=== PATIENT | female | born 1960 | race Caucasian/White ===

== ENCOUNTER 2017-11-20 04:08 | Emergency (ER) | payer OTHER ==
--- NOTE | 2017-11-20 04:13 | PDOC ---
History of Present Illness - General Stated Complaint: THROAT CLOSING Time Seen by Provider: 11/20/17 04:13 - History of Present Illness Initial Comments: 56 year old female without any PMH presenting with sensation of throat constriction for the past few hours. States that she had an episode of angioedema yesterday and was seen at an urgent care center where she was given an epinephrine injection, steroids, and Benadryl after which her lip swelling, neck rash, and general symptoms resolved. She is currently on a Medrol dose pack and 50 Benadryl 3x a day. She went to bed without much issue but woke up because she felt that the inside of her throat was closing further. States that there is a sensation of food and water remaining at the bottom of her throat when she eats. Marshall any history of allergies or any medications besides these recent ones. Her PCP is Dr. Khurram Granados. 11/20/17 04:24 Past History - Past Medical History Allergies/Adverse Reactions: Allergies Allergy/AdvReac Type Severity Reaction Status Date / Time No Known Allergies Allergy Verified 11/20/17 04:16 Home Medications: Ambulatory Orders Diphenhydramine [Benadryl -] 50 mg PO QID PRN 11/20/17 Omeprazole 20 mg PO DAILY #14 tablet. 11/20/17 Prednisone 0 mg PO ASDIR 11/20/17 Review of Systems - Review of Systems Constitutional: No: Chills, Diaphoresis, Fever, Loss of Appetite HEENTM: No: Blurred Vision, Tearing Respiratory: No: Cough, Orthopnea, Shortness of Breath, Stridor, Wheezing Cardiac (ROS): No: Chest Pain, Edema ABD/GI: Yes: Difficulty Swallowing. No: Diarrhea, Nausea, Vomiting : No: Dysuria, Discharge, Frequency Musculoskeletal: No: Muscle Pain, Muscle Weakness Integumentary: Yes: Lesions, Pruritus, Rash. No: Lumps, Pallor Neurological: No: Headache, Numbness, Paresthesia Endocrine: No: Increased Hunger, Increased Thirst Hematologic/Lymphatic: No: Anemia, Blood Clots, Easy Bleeding *Physical Exam - Physical Exam General Appearance: Yes: Nourished, Appropriately Dressed, Apparent Distress, Mild Distress HEENT: positive: EOMI, SYBIL, Normal ENT Inspection, Normal Voice, Pharynx Normal Neck: positive: Trachea midline, Normal Thyroid, Supple. negative: Tender, Rigid Respiratory/Chest: positive: Lungs Clear, Normal Breath Sounds. negative: Chest Tender, Respiratory Distress, Accessory Muscle Use, Labored Respiration, Rapid RR, Decreased Breath Sounds, Crackles, Rales, Rhonchi, Stridor, Wheezing Cardiovascular: positive: Regular Rhythm, Regular Rate Gastrointestinal/Abdominal: positive: Normal Bowel Sounds, Flat, Soft. negative : Tender Lymphatic: negative: Adenopathy, Tenderness Musculoskeletal: positive: Normal Inspection. negative: Decreased Range of Motion, Muscle Spasm Extremity: positive: Normal Capillary Refill, Normal Inspection, Normal Range of Motion. negative: Tender Integumentary: positive: Normal Color, Dry, Warm Neurologic: positive: Fully Oriented, Alert, Normal Mood/Affect, Normal Response , Motor Strength 10/28 ED Treatment Course - LABORATORY CBC & Chemistry Diagram: 11/20/17 04:58 11/20/17 04:58 Medical Decision Making - Medical Decision Making 56 year old with recent history of angioedema currently on Benadryl and medrol dose pack presenting with subjective throat closing and food/ fluid constriction. Will observe for a few hours and re-evaluate with possible sign out for ENT consult. 11/20/17 04:32 Patient was signed out to Dr. Chatman pending ENT consult and evaluation. However, she has been completely stable and objectively asymptomatic while in the ED although she does admit to this throat sensation lingering. 11/20/17 06:32 *DC/Admit/Observation/Transfer Diagnosis at time of Disposition: Angioedema - Discharge Dispostion Disposition: HOME Condition at time of disposition: Good - Prescriptions Prescriptions: Omeprazole 20 mg PO DAILY #14 tablet.dr - Referrals Referrals: Eduardo Granados MD [Primary Care Provider] - - Patient Instructions Printed Discharge Instructions: DI for General Allergic Reactions Additional Instructions: Please return if you have any new, worsening, or concerning symptoms. Please take omeprazole daily as instructed on the label, this medication is available over the counter. Please follow up with your primary care physician in the next week. Please follow up with the actuarial internship suggested by ENT. - Post Discharge Activity
[2017-11-20 04:21] VITALS: BMI 18.0
[2017-11-20] MEDS ORDERED: methylPREDNISolone NA SUCC 125 MG/2 ML VIAL IVPB ONE (04:36)
--- NOTE | 2017-11-20 04:43 | PDOC ---
Attending Attestation - Resident Resident Name: YossiDarrelmoichase - ED Attending Attestation I have performed the following: I have examined & evaluated the patient, The case was reviewed & discussed with the resident, I agree w/resident's findings & plan, Exceptions are as noted - HPI HPI: 11/20/17 04:36 56-year-old female patient with past medical history of angioedema presents with throat causing sensation. Patient visited an urgent care yesterday for angioedema of the lips and was given a prescription of Benadryl and prednisone. Which she was taking. She reported that the swelling of her lips have improved drastically and went to bed. This morning, patient noted throat closing sensation but denies difficulty breathing. The patient came to the ER for an evaluation. The patient does report that she had a similar incident 6 months ago that resolved on its own. The patient denies any new ALLERGIC reactions or other exposures. She states that she is unsure of what is causing this angioedema. - Physicial Exam PE: 11/20/17 04:46 GENERAL: Awake, alert, and fully oriented, in no acute distress. HEAD: No signs of trauma EYES: PERRLA, EOMI, sclera anicteric, conjunctiva clear ENT: Auricles normal inspection, hearing grossly normal, nares patent, oropharynx clear without exudates. NECK: Normal ROM, supple LUNGS: Breath sounds equal, clear to auscultation bilaterally. No wheezes, and no crackles HEART: Regular rate and rhythm, normal S1 and S2, no murmurs, rubs or gallops EXTREMITIES: Normal range of motion, no edema. No clubbing or cyanosis. No cords, erythema, or tenderness NEUROLOGICAL: Cranial nerves II through XII grossly intact. Normal speech, normal gait SKIN: Warm, Dry, normal turgor, no rashes or lesions noted. - Medical Decision Making 11/20/17 04:46 Vital Signs Temp Pulse Resp BP Pulse Ox 98.2 F 80 18 124/99 100 11/20/17 04:18 11/20/17 04:18 11/20/17 04:18 11/20/17 04:18 11/20/17 04:18 56-year-old female with history of angioedema resents with subjective sensation of throat closing. Patient will be given steroids and Benadryl. We'll observe the patient for several hours. Oropharynx appears unremarkable at this time. Patient speaking in full sentences without stridor or wheezing. There is no drooling or change in voice. If the patient continued persistence of symptoms, we'll consult ENT for nasopharyngeal scoping.
[2017-11-20] MEDS ORDERED: FAMOTIDINE 20 MG/50 ML IVPB 20 MG/50 ML MG IVPB ONE ×2 (04:46→05:15)
[2017-11-20] MEDS ORDERED: methylPREDNISolone NA SUCC 125 MG/2 ML VIAL ONE (04:46)
[2017-11-20] MEDS ORDERED: SODIUM CHLORIDE 0.9% 500 ML INFUS.BAG IV ONE (04:55)
[2017-11-20 05:13] LABS: BASO % 0.2 % (0-2.0); HEMATOCRIT 39.7 % (32.4-45.2); HEMOGLOBIN 13.2 GM/dL (10.7-15.3); LYMPH % 14.2 % (8-40); MCH 31.9 pg (25.7-33.7); MCHC 33.3 g/dl (32.0-36.0); MEAN CELL VOLUME 95.6 fl (80-96); MEAN PLT VOLUME 9.7 fl (7.5-11.1); MONO % 5.2 % (3.8-10.2); NEUT % 80.4 % (42.8-82.8); PLATELET COUNT 249 K/MM3 (134-434); RBC 4.15 M/mm3 (3.60-5.2); RDW 13.8 % (11.6-15.6); WHITE BLOOD COUNT 8.2 K/mm3 (4.0-10.0)
[2017-11-20 05:42] LABS: ALBUMIN 3.9 g/dl (3.4-5.0); ALK PHOS 50 U/L (45-117); ANION GAP 7 (8-16); BILIRUBIN,TOTAL 0.3 mg/dL (0.2-1.0); BLOOD UREA NITROGEN 18 mg/dL (7-18); CALCIUM 9.1 mg/dL (8.5-10.1); CHLORIDE 103 mmol/L (98-107); CO2 28 mmol/L (21-32); CREATININE 0.7 mg/dL (0.55-1.02); GLUCOSE,RANDOM 123 mg/dL (74-106); POTASSIUM 4.2 mmol/L (3.5-5.1); SGOT/AST 14 U/L (15-37); SGPT/ALT 21 U/L (12-78); SODIUM 138 mmol/L (136-145); TOT PROT 7.5 g/dl (6.4-8.2)
[2017-11-20] MEDS ORDERED: LORazepam 0.5 MG TABLET PO ONE (06:03)
[2017-11-20] MEDS ORDERED: LORazepam 0.5 MG TABLET ONE (06:05)
--- NOTE | 2017-11-20 07:34 | PDOC ---
*Physical Exam - Vital Signs Last Vital Signs Temp Pulse Resp BP Pulse Ox 98.1 F 75 18 147/70 100 11/20/17 07:10 11/20/17 07:10 11/20/17 07:10 11/20/17 07:10 11/20/17 07:10 - Physical Exam Comments: 11/20/17 07:33 GENERAL: Awake, alert, and fully oriented, in no acute distress ENT: Auricles normal inspection, hearing grossly normal, nares patent, oropharynx clear without exudates. Moist mucosa NECK: Normal ROM, supple, no lymphadenopathy, JVD, or masses. No stridor LUNGS: No distress, speaks full sentences, clear to auscultation bilaterally EXTREMITIES: Normal inspection, Normal range of motion, no edema. No clubbing or cyanosis. NEUROLOGICAL: Cranial nerves II through XII grossly intact. Normal speech, no focal sensorimotor deficits SKIN: Warm, Dry, normal turgor, no rashes or lesions noted. ED Treatment Course - LABORATORY CBC & Chemistry Diagram: 11/20/17 04:58 11/20/17 04:58 - ADDITIONAL ORDERS Additional order review: Laboratory Results 11/20/17 04:58 Sodium 138 Potassium 4.2 Chloride 103 Carbon Dioxide 28 Anion Gap 7 L BUN 18 Creatinine 0.7 Creat Clearance w eGFR > 60 Random Glucose 123 H Calcium 9.1 Total Bilirubin 0.3 AST 14 L ALT 21 Alkaline Phosphatase 50 Total Protein 7.5 Albumin 3.9 11/20/17 04:58 RBC 4.15 MCV 95.6 MCHC 33.3 RDW 13.8 MPV 9.7 Neutrophils % 80.4 Lymphocytes % 14.2 Monocytes % 5.2 Eosinophils % 0.0 Basophils % 0.2 - Medications Given in the ED: ED Medications Discontinued Medications Generic Name Dose Route Start Last Admin Trade Name Freq PRN Reason Stop Dose Admin Diphenhydramine HCl 25 mg 11/20/17 04:36 11/20/17 05:04 Benadryl Injection - IVPUSH 11/20/17 04:37 25 mg ONCE ONE Administration Famotidine/Sodium Chloride 20 mg in 50 mls @ 100 mls/hr 11/20/17 05:15 05:11 Pepcid 20 Mg Premixed Ivpb - IVPB 11/20/17 05:44 100 mls/hr ONCE ONE Administration Lorazepam 0.5 mg 05/28/18 06:01 11/20/17 07:32 Ativan Injection - IVPUSH 11/20/17 06:02 Not Given ONCE ONE Lorazepam 0.5 mg 11/20/17 06:03 11/20/17 07:07 Ativan - PO 11/20/17 06:04 0.5 mg ONCE ONE Administration Methylprednisolone Sodium Succinate 125 mg 11/20/17 04:36 11/20/17 05:04 Solu-Medrol - IVPB 11/20/17 04:37 125 mg ONCE ONE Administration Sodium Chloride 1,000 ml 11/20/17 04:55 11/20/17 05:05 Normal Saline - IV 11/20/17 04:56 1,000 ml ONCE ONE Administration Medical Decision Making - Medical Decision Making 11/20/17 07:[address] Sy. Patient is 56F who presented with difficultly breathing after having an episode of angioedema yesterday. No known causes of angioedema, patient is not on any drugs. PE shows no evidence of angioedema at this time, but patient states that she still has a sensation of her throat being swollen. ENT called. Patient is stable. 11/20/17 10:[address] Govea evaluted patient. Scope shows no edema in airway. Suggests giving omeprazole, stopping steroids and log sorter follow up. Patient states that she feels better on re-evaluation. Breathing easy. Appears well. Will discharge with prescription for omeprazole, return precautions and instructions to follow up. *DC/Admit/Observation/Transfer Diagnosis at time of Disposition: Angioedema - Discharge Dispostion Disposition: HOME Condition at time of disposition: Good Decision to Admit order: No - Referrals Referrals: Eduardo Granados MD [Primary Care Provider] - - Patient Instructions Printed Discharge Instructions: DI for General Allergic Reactions Additional Instructions: Please return if you have any new, worsening, or concerning symptoms. Please take omeprazole daily as instructed on the label, this medication is available over the counter. Please follow up with your primary care physician in the next week. Please follow up with the log sorter suggested by ENT. - Post Discharge Activity
--- NOTE | 2017-11-20 08:34 | EKG ---
Test Reason : Blood Pressure : / mmHG Vent. Rate : 066 BPM Atrial Rate : 066 BPM P-R Int : 120 ms QRS Dur : 074 ms QT Int : 380 ms P-R-T Axes : 103 076 072 degrees QTc Int : 398 ms NORMAL SINUS RHYTHM NORMAL ECG NO PREVIOUS ECGS AVAILABLE BASELINE ARTIFACT Confirmed by CORNELIO SAWANT, MAGALYS ([id number]) on 11/20/2017 8:34:38 AM Referred By: Confirmed By:MAGALYS GRIMES MD
[2017-11-20] MEDS ORDERED: FAMOTIDINE IV 20 MG/12 ML VIAL IVPUSH SCH (10:00)
[2017-11-20 10:40] VITALS: BP 134/70; PULSE 77; TEMP 98
--- NOTE | 2017-11-20 11:29 | CONSULT ---
Consult - text type - Consultation Consultation Note: ENT CONSULT NOTE Full note dictated. 56 YOF came in 6 hrs ago with sensation of throat swelling. She developed lip swelling upper and lower 3 days ago, went to , given prednisone and this has gradually but fully resolved, the throat still bothers her. No dysphagia or hoarseness or SOB. No hx of reflux. Pt otherwise is healthy on no regular meds and does not note any significant changes in her lifestyle or personal care products. Similar problem one mth ago while taking zyrtec, this was associated with a rash on the anterior neck, saw dermatology and took prednisone and all resolved fully. Has not taken zyrtec since then. No current meds. PE: Afeb, normal VS Ears wnl. Nose wnl, Lips and OC wnl, no edema, lesions. OP wnk, no swelling. Neck without masses or tenderness or rash. Fiberoptic exam: Right nose to UTILITY PORTER, OP wnl; HP: no angioedema seen, esophageal inlet with sx of moderate acid reflux. larynx and upper trachea wnl. Airway is normal. Voice is strong and clear and unchanged according to family. IMP: Idiopathic angioneurotic edema, no sx of swelling in the airway at present. Would be unusal to have esophageal swelling and pt able to drink fine. ? contribution from reflux giving throat discomfort. REC: Ok for d/c home. Can stop the prednisone and just use prn. Would have her take omeprazole 40mg QAM and f/u with Dr David Campos, chief concierge at [facility] in [place] to do a full w/u. Info given to pt.
== END 2017-11-20 10:50 | disposition home or self-care (01) ==
LOC: JER 04:08 → SUPCPDRO 04:08 → JER 10:50
PROC: 0CJS8ZZ Inspection of Larynx, Via Natural or Artificial Opening Endoscopic (ICD-10-PCS; principal; 2017-11-20)
DX: T78.3XXA Angioneurotic edema, initial encounter (principal)
CPT/HCPCS: 31575; 36415; 80053; 85025; 93005; 93010; 99284-25

== ENCOUNTER 2018-04-04 06:09 | Inpatient (IN) | payer OTHER ==
[2018-04-02 14:40] VITALS: BMI 19.7
[2018-04-04] MEDS ORDERED: ROPIVACAINE HCL 0.5% 30ML VIAL ONE (07:18)
[2018-04-04] MEDS ORDERED: MIDAZOLAM HCL 2 MG/2 ML SINGLE DOSE VIAL ONE ×2 (07:20)
[2018-04-04] MEDS ORDERED: CEFAZOLIN 1 GM in DEXTROSE 5%-WATER - 50 ML IVPB ONE (08:09)
--- NOTE | 2018-04-04 08:09 | HP ---
History & Physical Update - Physical Physical: No Change - Assessment Assessment: No Change - Plan Plan: No Change
[2018-04-04] MEDS ORDERED: ROCURONIUM BROMIDE 50 MG/5 ML VIAL ONE (08:15)
[2018-04-04] MEDS ORDERED: LIDOCAINE HCL/PF 2% SDV 5ML VIAL ONE (08:15)
[2018-04-04] MEDS ORDERED: PROPOFOL 20 ML ONE (08:15)
[2018-04-04] MEDS ORDERED: ceFAZolin SODIUM 1 GM VIAL ONE ×2 (08:19→16:33)
[2018-04-04] MEDS ORDERED: ceFAZolin SODIUM 1 GM VIAL IVPB ONE (08:25)
[2018-04-04] MEDS ORDERED: DEXAMETHASONE SOD PHOSPHATE 4 MG/1 ML VIAL ONE (08:40)
[2018-04-04] MEDS ORDERED: NEOSTIGMINE METHYLSULFATE 0.5 MG/ML - 10 ML MDV ONE (09:02)
[2018-04-04] MEDS ORDERED: GLYCOPYRROLATE 0.2 MG/1 ML VIAL ONE (09:02)
[2018-04-04] MEDS ORDERED: KETOROLAC TROMETHAMINE 30 MG/1 ML VIAL ONE (09:11)
[2018-04-04] MEDS ORDERED: oxyCODONE HCL 5 MG TABLET PO PRN (09:44)
[2018-04-04] MEDS ORDERED: ONDANSETRON 4 MG/2 ML VIAL IVPUSH PRN ×2 (09:44→09:45)
[2018-04-04] MEDS ORDERED: ELECTROLYTE-148 SOLN 1,000 ML IV SCH (09:45)
[2018-04-04] MEDS ORDERED: LACTATED RINGERS SOLUTION 1,000 ML IV SCH (09:45)
--- NOTE | 2018-04-04 09:55 | OP ---
Operative Note - Note: Operative Date: 04/04/18 Pre-Operative Diagnosis: pelvic pain, fibroid uterus Operation: supracervical abdominal hysterectomy, BSO Findings: large multiple myomatous uterus with adenomyosis Surgeon: Poncho Martinez Tomato Grader: Silva Jensen Anesthesiologist/MARINE PIPEFITTER HELPER: Chrissy Ba Anesthesia: General Specimens Removed: uterus, both tubes and ovaries Estimated Blood Loss (mls): 50 Drains & Tubes with Location: none Drains, Volume Out (mls): 100 Blood Volume Replaced (mls): 800 Operative Report Dictated: Yes
[2018-04-04] MEDS ORDERED: ACETAMINOPHEN INJECTION 100 ML IVPB ONE (10:01)
[2018-04-04] MEDS: ACETAMINOPHEN 1000 MG/100 ML VIAL (NON FORMULARY) IVPB PRN ×2 (10:10→23:22)
[2018-04-04] MEDS ORDERED: LORazepam 2 MG/ML SDV VIAL ONE (10:43)
[2018-04-04] MEDS ORDERED: LORazepam 2 MG/ML SDV VIAL IVPUSH ONE (12:00)
--- NOTE | 2018-04-04 12:35 | OP ---
DATE OF OPERATION: 04/04/2018 PREOPERATIVE DIAGNOSIS: Pelvic pain, fibroid uterus. POSTOPERATIVE DIAGNOSIS: Pelvic pain, fibroid uterus, adenomyosis. SURGEON: Poncho Martinez MD DATA QUALITY CONSULTANT: Silva Jensen MD ESTIMATED BLOOD LOSS: 50 mL. ANESTHESIA: General. ANESTHESIOLOGIST: Chrissy Ba MD COMPLICATIONS: None. OPERATION: The patient was taken to the operating room under adequate general anesthesia, and in dorsal supine position, abdomen and perineum were prepped and draped. A Pfannenstiel abdominal skin incision was made. Abdominal wall was cut layer by layer until the peritoneum was exposed and incised. Upon entering the abdominal cavity, lower uterine segment was identified, and uterovesical fold of peritoneum was established, bladder was pushed down. Then, both round ligaments were identified, grasped with bipolar cautery, cauterized and cut. Then, a hole was made in the broad ligament. Bilateral tubes and ovaries were grasped with a Paguate clamp, and infundibulopelvic area was cauterized with bipolar cautery and cut, and adnexa was severed from the infundibulopelvic ligament. At this time, bladder was further pushed down. Uterine artery was identified bilaterally, clamped with Chad clamp, cut, and the clamp replaced with 0 Vicryl suture bilaterally. Paracervical area was clamped with Chad clamp, cut, and the clamp replaced with 0 Vicryl suture bilaterally. Then, the specimen was removed above the cervix. Cervix was sutured with interrupted suture of 0 Vicryl. Hemostasis was established. Pelvic cavity was several times irrigated. No active bleeding was seen. All the lap pad, sponge, and instrument counts were correct. Then, peritoneum was closed with 0 Vicryl continuous suture, muscles brought together with interrupted suture of 0 Vicryl, fascia was closed with 0 Vicryl continuous suture, subcutaneous fat with interrupted suture of 0 Vicryl, and the skin was closed with 4-0 Biosyn subcuticular continuous suture. Patient tolerated the procedure well, left the OR in good condition. Mona [id number]
[2018-04-04] MEDS: CEFAZOLIN 1 GM in DEXTROSE 5%-WATER - 50 ML IVPB SCH ×2 (13:06→17:27)
[2018-04-04] MEDS: IBUPROFEN 800 MG/8 ML IJ IVPB PRN ×2 (13:15→19:26)
[2018-04-04] MEDS ORDERED: DEXTROSE 5%-WATER - 50 ML IVPB ONE (16:33)
[2018-04-04] MEDS: ACETAMINOPHEN 325 MG TABLET (FP) PO PRN (16:39)
[2018-04-04] MEDS ORDERED: BENZOCAINE/MENTH/CETYLPYRD CL 1 EACH LOZENGE MM PRN (20:04)
[2018-04-04] MEDS: oxyCODONE HCL 5 MG TABLET PO PRN (20:55)
[2018-04-05] MEDS: SIMETHICONE 80 MG TAB.CHEW (FP) PO PRN ×4 (01:49→18:13)
[2018-04-05] MEDS ORDERED: ceFAZolin SODIUM 1 GM VIAL ONE (01:55)
[2018-04-05] MEDS ORDERED: DEXTROSE 5%-WATER - 50 ML IVPB ONE (01:55)
[2018-04-05] MEDS: CEFAZOLIN 1 GM in DEXTROSE 5%-WATER - 50 ML IVPB SCH (02:02)
[2018-04-05] MEDS: IBUPROFEN 800 MG/8 ML IJ IVPB PRN (02:31)
[2018-04-05] MEDS: oxyCODONE HCL 5 MG TABLET PO PRN ×3 (06:10→13:57)
[2018-04-05] MEDS: ACETAMINOPHEN 325 MG TABLET (FP) PO PRN ×4 (06:10→22:06)
[2018-04-05 08:37] LABS: HEMATOCRIT 33.3 % (32.4-45.2); HEMOGLOBIN 11.2 GM/dL (10.7-15.3); MCH 31.2 pg (25.7-33.7); MCHC 33.8 g/dl (32.0-36.0); MEAN CELL VOLUME 92.3 fl (80-96); MEAN PLT VOLUME 9.3 fl (7.5-11.1); PLATELET COUNT 216 K/MM3 (134-434); RDW 13.6 % (11.6-15.6)
[2018-04-05 08:42] LABS: ANION GAP 6 MMOL/L (8-16); BLOOD UREA NITROGEN 7 mg/dL (7-18); CALCIUM 8.4 mg/dL (8.5-10.1); CHLORIDE 107 mmol/L (98-107); CO2 27 mmol/L (21-32); CREATININE 0.5 mg/dL (0.55-1.3); GLUCOSE,RANDOM 89 mg/dL (74-106); POTASSIUM 4.3 mmol/L (3.5-5.1); SODIUM 140 mmol/L (136-145)
[2018-04-05] MEDS: ENOXAPARIN NA (PORCINE) 40 MG/0.4 ML DISP.SYRIN SQ SCH (10:43)
[2018-04-05] MEDS: DOCUSATE SODIUM 100 MG CAPSULE (FP) PO PRN ×2 (10:43→21:21)
--- NOTE | 2018-04-05 12:57 | PN ---
Progress Note (short form) - Note Progress Note: Anesthesia POD#1 S/P Abdominal Hysterectomy with BSO under GA,TAP Block VSS,no N/V,legs are strong,no pain. Chrissy Ba MD.
[2018-04-05] MEDS ORDERED: PANTOPRAZOLE 40 MG TABLET (FP) PO PRN (16:00)
--- NOTE | 2018-04-05 16:04 | PN ---
Progress Note (short form) - Note Progress Note: pod 1 ,c/o nausea , has indigestion, CBC, BMP 04/05/18 07:12 04/05/18 07:12 Last Vital Signs Temp Pulse Resp BP Pulse Ox 98.7 F 72 18 116/70 100 04/05/18 09:40 04/05/18 09:40 04/05/18 09:40 04/05/18 09:40 04/04/18 12:00 abdomen soft, no distension, no cva incision dry, clean no calf tenderness plan ambulate, protonix. pain management
[2018-04-05] MEDS ORDERED: METOCLOPRAMIDE HCL INJECTION 10 MG/2 ML VIAL IVPB PRN (17:52)
[2018-04-05] MEDS: IBUPROFEN 600 MG TABLET (FP) PO PRN (18:13)
[2018-04-05] MEDS ORDERED: ACETAMINOPHEN 325 MG TABLET (FP) PO PRN (21:52)
[2018-04-05] MEDS ORDERED: ZOLPIDEM TARTRATE 5 MG TABLET PO ONE (22:00)
[2018-04-06] MEDS: ACETAMINOPHEN 325 MG TABLET (FP) PO PRN ×2 (04:07→11:22)
--- NOTE | 2018-04-06 07:00 | PN ---
Progress Note (short form) - Note Progress Note: pod 2 doing well, passing gas CBC, BMP 04/05/18 07:12 04/05/18 07:12 Last Vital Signs Temp Pulse Resp BP Pulse Ox 98.5 F 65 18 132/73 100 04/05/18 22:00 04/05/18 22:00 04/05/18 22:00 04/05/18 22:00 04/04/18 12:00 abdomen soft, no distension, no cva incision dry, clean no calf tenderness plan d/c home , folow up office 2 weeks
[2018-04-06] MEDS: ENOXAPARIN NA (PORCINE) 40 MG/0.4 ML DISP.SYRIN SQ SCH (09:13)
[2018-04-06] MEDS: IBUPROFEN 600 MG TABLET (FP) PO PRN (09:13)
[2018-04-06 10:06] VITALS: BP 119/80; PULSE 85; TEMP 98
--- NOTE | 2018-04-09 16:33 | DS ---
Physical Exam-INSTRUCTIONAL DESIGN SPECIALIST Vital Signs: Vital Signs Temperature 98.0 F 04/06/18 09:37 Pulse Rate 85 04/06/18 09:37 Respiratory Rate 18 04/06/18 09:37 Blood Pressure 119/80 04/06/18 09:37 O2 Sat by Pulse Oximetry (%) 100 04/04/18 12:00 Constitutional: Yes: Well Nourished, No Distress, Calm Eyes: Yes: WNL, Conjunctiva Clear, EOM Intact HENT: Yes: WNL, Atraumatic, Normocephalic Neck: Yes: WNL, Supple, Trachea Midline Cardiovascular: Yes: WNL, Regular Rate and Rhythm Respiratory: Yes: WNL, Regular, CTA Bilaterally Gastrointestinal: Yes: WNL ...Rectal Exam: Yes: WNL Renal/: Yes: WNL Breast(s): Yes: WNL Musculoskeletal: Yes: WNL Extremities: Yes: WNL Edema: No Integumentary: Yes: WNL Wound/Incision: Yes: Clean/Dry, Well Approximated, Sutures Intact Neurological: Yes: WNL, Alert, Oriented ...Motor Strength: WNL Psychiatric: Yes: WNL, Alert, Oriented Labs: CBC, BMP 04/05/18 07:12 04/05/18 07:12 Discharge Summary Reason For Visit: FIBROIDS UTERUS/PELVIC PAIN Procedures: Principal: supracervical abdominal hysterectomy ,bilateral salpingectomy Hospital Course: no complication Condition: Good - Instructions Diet, Activity, Other Instructions: regular diet, if fever, pain, heavy vaginal bleeding call , follow up office 2 weeks Referrals: Poncho Martinez MD [Staff Physician] - Disposition: HOME - Home Medications Comprehensive Discharge Medication List: Ambulatory Orders Cetirizine HCl [Zyrtec -] 10 mg PO DAILY 04/02/18 Ibuprofen [Motrin -] 600 mg PO QID #28 tablet 04/04/18
--- NOTE | 2018-04-10 13:37 | PATH ---
Surgical Pathology Report Patient Name: PRANAV CH [facility]. Rec. #: [id number] /Age/Gender: 1960 (Age: 57) / F Account: [id number] Location: [facility] OBS/SENIOR CLINICAL CONSULTANT Taken: 04/04/2018 Received: 04/04/2018 Reported: 04/10/2018 Physicians: Poncho Martinez M.D. Specimen(s) Received UTERUS WITH B/L TUBES AND OVARIES Clinical History Fibroid uterus, pelvic pain Final Diagnosis UTERUS, BILATERAL FALLOPIAN TUBES AND OVARIES, SUPRACERVICAL HYSTERECTOMY AND SALPINGO-OOPHORECTOMY: LEIOMYOMATA. ATROPHIC ENDOMETRIUM. BILATERAL FALLOPIAN TUBES WITH ENDOSALPINGIOSIS. BILATERAL OVARIES WITH ENDOSALPINGOSIS AND ENDOMETRIOSIS. Comment: Immunohistochemical CD10 stained slide on "block 15" highlights the endometrial stroma of endometriosis. Immunohistochemistry stain CD10 performed at [place], [place] ([id number]) interpreted at [facility]. Electronically Signed Pacheco Dougherty M.D. Gross Description Received in formalin labeled "uterus, bilateral fallopian tubes ovaries," is a 752 g supracervically amputated uterus with bilateral attached adnexa. The specimen measures 12 cm from superior to inferior, 9.5 cm from anterior to posterior and 9.5 cm from left to right. The serosa is welsh-malcolm and smooth. The endometrial cavity measures 9 cm in length and 3.5 cm from cornu to cornu. The endometrium is welsh and averages 0.1 cm in thickness. The myometrium displays abundant intramural nodules, the largest of which measures 11 cm in greatest dimension. The largest intramural nodule displays foci of degeneration and necrosis. The remaining intramural nodules are welsh and rubbery with whorled architecture. The remaining myometrium is welsh-pink and measures up to 8 cm in thickness. The left fimbriated fallopian tube measures 3.5 cm in length. The outer surface is welsh slaughter and smooth. Sectioning reveals an unremarkable lumen. The left ovary measures 2.5 x 1.5 x 0.7 cm. The outer surface is welsh and smooth. Sectioning reveals unremarkable ovarian parenchyma. The right fimbriated fallopian tube measures 5.5 cm in length. The outer surface is welsh-malcolm and smooth. Sectioning reveals an unremarkable lumen. The right ovary measures 2.3 x 1.3 x 1.0 cm. The outer surface is welsh-yellow and smooth. Sectioning reveals unremarkable ovarian parenchyma. Debrander sections are submitted in 15 cassettes as follows: 1-cervical stump margin of resection; 8-9-rplztlus endomyometrium; 6-8-ztneqovfo endomyometrium; 6-intramural nodules; 7-9-largest intramural nodule; 10-left fallopian tube fimbria; 11-cross sections of left fallopian tube; 12-left ovary; 13-right fallopian tube fimbria; 14-cross sections of right fallopian tube; 15-right ovary. 04/05/2018 saudi04/05/2018
== END 2018-04-06 11:30 | disposition home or self-care (01) | DRG 519 ==
LOC: JSAMEDAYSX 06:09 → J3W 12:10
PROVIDERS: ADMIT Obstetrics & Gynecology; ATTEND Obstetrics & Gynecology
PROC: 0UT70ZZ Resection of Bilateral Fallopian Tubes, Open Approach (ICD-10-PCS; 2018-04-04)
PROC: 0UT20ZZ Resection of Bilateral Ovaries, Open Approach (ICD-10-PCS; 2018-04-04)
PROC: 0UT90ZL Resection of Uterus, Supracervical, Open Approach (ICD-10-PCS; principal; 2018-04-04 08:00)
DX: D25.9 Leiomyoma of uterus, unspecified (principal); N80.0 Endometriosis of uterus; R11.0 Nausea
CPT/HCPCS: 36415; 80048; 85027; 86850; 86900; 86901; 88307-TC; 88341-TC; 94010; 94760; J0131

== ENCOUNTER → 2019-01-03 | Day surgery (SDC) | payer OTHER ==
--- NOTE | 2019-01-04 14:59 | PATH ---
Surgical Pathology Report Patient Name: PRANAV CH [facility]. Rec. #: [id number] /Age/Gender: 1960 (Age: 58) / F Account: [id number] Location: [facility] Taken: 01/03/2019 Received: 01/03/2019 Reported: 01/04/2019 Physicians: Timoteo Garcia M.D. Specimen(s) Received A: LEFT BREAST WITH CALCIFICATIONS STEREOTACTIC BX B: LEFT BREAST WITHOUT CALCIFICATIONS STEREOTACTIC BX Clinical History Nonpalpable lesion Mammographic findings: Microcalcification, suspicious Final Diagnosis A. 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 B. BREAST, LEFT, WITHOUT CALCIFICATIONS, STEREOTACTIC BIOPSY: FOCAL ATYPICAL DUCTAL HYPERPLASIA (ADH). Electronically Signed Alaina Edmonds M.D. Gross Description A. Received in formalin labeled "left breast with calcifications," are 4 welsh-yellow, cylindrical portions of fibroadipose tissue ranging from 0.5-1.6 cm in length and averaging 0.3 cm in diameter. The specimens are submitted in toto in one cassette. B. Received in formalin labeled "left breast without calcifications," is a 2.4 x 1.9 x 0.3 cm aggregate of multiple welsh-yellow, irregular to cylindrical portions of fibroadipose tissue. The formalin is filtered and the specimen is entirely submitted in one cassette. Time to formalin fixation: 5 minutes Total formalin fixation time: Approximately 8 hours. /01/03/2019 saudi01/03/2019
== END | disposition home or self-care (01) ==
LOC: FMAMMOTONE 08:25
PROVIDERS: ATTEND Specialist
PROC: 0HBU3ZX Excision of Left Breast, Percutaneous Approach, Diagnostic (ICD-10-PCS; principal; 2019-01-03)
DX: N60.92 Unspecified benign mammary dysplasia of left breast (principal)
CPT/HCPCS: 19081; 88305-TC

== ENCOUNTER 2019-02-13 10:02 | Day surgery (SDC) | payer OTHER ==
[2019-02-08 10:04] VITALS: BMI 20.9
[2019-02-13] MEDS ORDERED: oxyCODONE HCL 5 MG TABLET PO PRN (12:17)
[2019-02-13] MEDS ORDERED: ONDANSETRON 4 MG/2 ML VIAL IVPUSH PRN (12:17)
[2019-02-13] MEDS ORDERED: LACTATED RINGERS SOLUTION 1,000 ML IV SCH (12:30)
[2019-02-13] MEDS ORDERED: LIDOCAINE HCL 1%, 10 MG/ML (20ML VIAL) ONE (13:32)
[2019-02-13] MEDS ORDERED: PROPOFOL 20 ML ONE (13:49)
[2019-02-13] MEDS ORDERED: MIDAZOLAM HCL 2 MG/2 ML SINGLE DOSE VIAL ONE (13:49)
[2019-02-13] MEDS ORDERED: KETOROLAC TROMETHAMINE 30 MG/1 ML VIAL ONE (14:03)
[2019-02-13] MEDS ORDERED: ceFAZolin SODIUM 1 GM VIAL ONE (14:03)
[2019-02-13] MEDS ORDERED: DEXAMETHASONE SOD PHOSPHATE 4 MG/1 ML VIAL ONE (14:03)
[2019-02-13] MEDS ORDERED: ceFAZolin SODIUM 1 GM VIAL IVPB ONE (14:05)
[2019-02-13] MEDS ORDERED: LIDOCAINE HCL 1%, 10 MG/ML (20ML VIAL) NR ONE ×2 (14:10)
[2019-02-13] MEDS ORDERED: ePHEDrine SULFATE 50 MG/1 ML AMPULE ONE (14:27)
--- NOTE | 2019-02-13 14:45 | HP ---
History & Physical Update - History History: No Change - Physical Physical: No Change - Assessment Assessment: No Change - Plan Plan: No Change
[2019-02-13 15:09] VITALS: PULSE 64
[2019-02-13 17:24] VITALS: BP 137/76; TEMP 97.7
--- NOTE | 2019-02-14 12:52 | OP ---
DATE OF OPERATION: 02/13/2019 PREOPERATIVE DIAGNOSIS: Left breast atypia. POSTOPERATIVE DIAGNOSIS: Left breast atypia. PROCEDURE: Left breast wide localized lumpectomy. SURGEON: Janay Bass MD ANESTHESIA: General. ESTIMATED BLOOD LOSS: Minimal. COMPLICATIONS: None. DISPOSITION: Stable at the end of procedure. INDICATIONS: Patient underwent routine screening mammography that noted calcifications in the upper inner left breast. She underwent a stereotactic needle biopsy that showed atypical ductal hyperplasia. My recommendation was excision of the area to make sure there was no further upgrade in the lesion. The procedure was discussed with her, and she understood. PROCEDURE IN DETAIL: Patient was brought to [facility] in [place], taken to breast imaging where a wire was used to localize the clip in the upper inner left breast. She was then brought to the operating room, and after induction of general anesthesia and IV antibiotics, the left breast was prepped and draped in the usual sterile fashion. An incision was made in the upper inner left breast to include the prior incision from the stereotactic biopsy. The wire was used as a guide to get down to the area of interest. This was excised en bloc and tied with a long stitch lateral, short stitch superior, sent for a specimen radiograph. Hemostasis was assured with electrocautery. The parenchyma approximated with interrupted 2-0 Vicryl, skin approximated with interrupted 2-0 Vicryl, running 4-0 Prolene. A sterile dressing with Steri-Strips and Tegaderm was applied. Specimen radiograph showed the clip and wire to be intact within the specimen. This was then sent to pathology for permanent section. She tolerated the procedure well, was extubated on the operating room table, taken to recovery in good condition. JANAY BASS M.D. [id number]
--- NOTE | 2019-02-19 16:52 | PATH ---
Surgical Pathology Report Patient Name: PRANAV CH [facility]. Rec. #: [id number] /Age/Gender: 1960 (Age: 58) / F Account: [id number] Location: [facility] Taken: 02/13/2019 Received: 02/13/2019 Reported: 02/19/2019 Physicians: Janay Sanders M.D. Specimen(s) Received LEFT BREAST LUMPECTOMY Clinical History Left breast atypia Final Diagnosis LEFT BREAST, LUMPECTOMY: DUCTAL CARCINOMA IN SITU (DCIS), INTERMEDIATE GRADE, MICROPAPILLARY AND FLAT TYPE, WITH ASSOCIATED MICROCALCIFICATIONS. DCIS PRESENT IN ONE OF SIXTEEN SLIDES, MEASURING 0.5 CM IN GREATEST DIMENSION. SURGICAL MARGINS ARE UNINVOLVED BY DCIS. DCIS IS AT 3 MM FROM THE CLOSEST MARGIN (INFERIOR). REMAINING BREAST TISSUE SHOW INTRADUCTAL PAPILLOMA, FIBROCYSTIC CHNAGES INCLUDING ADENOSIS, CYSTIC AND PAPILLARY APOCRINE METAPLASIA. REACTIVE CHANGES AT PRIOR BIOPSY SITE IDENTIFIED. PATHOLOGIC STAGE (pTNM): pTis pNX ALSO SEE SURGICAL PATHOLOGY CANCER CASE SUMMARY BELOW. Intradepartmental case reviewed with concordance on diagnosis. This case was discussed with Dr. Sanders on February 19, 2019. Comments DCIS of the Breast: Surgical Pathology Cancer Case Summary (Based on AJCC TNM 8 th edition) Procedure _x_ Excision (less than total mastectomy) Specimen Laterality _x_ Left Size (Extent) of DCIS Estimated size (extent) of DCIS (greatest dimension using gross and microscopic evaluation): at least (millimeters): 5 mm Number of blocks with DCIS: 1 Number of blocks examined: 16 Histologic Type _x_ Ductal carcinoma in situ Architectural Patterns _x_ Micropapillary _x_ flat Nuclear Grade _x_ Grade II (intermediate) Necrosis _x_ Not identified Margins _x_ Uninvolved by DCIS Distance from closest margin (millimeters): 3 mm Specify closest margin: inferior Regional Lymph Nodes _x_ No lymph nodes submitted or found Pathologic Stage Classification (pTNM, AJCC 8th Edition) Primary Tumor (pT) _x__ pTis (DCIS): Ductal carcinoma in situ Microcalcifications _x_ Present in DCIS _x_ Present in nonneoplastic tissue Biomarker Studies Results of ER and NM studies performed on this specimen (block# 1) at [facility] are as follows: ER (clone [id number] mouse monoclonal antibody by [employer]): ~70% nuclear staining with strong and moderate intensity (positive). NM (clone16 mouse monoclonal antibody by [employer]): ~15% nuclear staining with strong and moderate intensity (positive). Positive and negative controls (internal if applicable) show appropriate results. Formalin fixation and cold ischemic times are within current ASCO/CAP recommendations for ER, NM and Her2 testing. Electronically Signed Pacheco Dougherty M.D. Gross Description Received in formalin, labeled "left breast lumpectomy, long suture stitch lateral, short stitch superior" is a 19 g, 4.9 x 4.0 x 2,0 cm. welsh-yellow, irregular, portion of fibroadipose tissue with a needle localization wire present. Segment of skin measuring 2.5 x 0.8 cm is present. The specimen is oriented with long suture stitch lateral, short stitch superior, per the surgeon. The surfaces of the specimen are inked as following: lateral: blue; medial: green, superior: red, inferior: yellow, deep/posterior: black, and soft tissue part anterior: orange. . The specimen is serially sectioned and revealed heterogenous fibroadipose tissue with focal hemorrhage. No definitive mass is identified. The specimen is entirely submitted in 16 cassettes, with medial margin in cassettes 13 and 14, lateral margin in cassettes 15 and 16. Time to formalin fixation; 8 minute Total formalin fixation time: Approximately 28hours. ALANNA02/14/2019 smiley02/14/2019
== END 2019-02-13 16:40 | disposition home or self-care (01) ==
LOC: JASU-SURG 10:02
PROVIDERS: ATTEND Surgery
PROC: 0HBU0ZZ Excision of Left Breast, Open Approach (ICD-10-PCS; principal; 2019-02-13 13:00)
DX: D05.12 Intraductal carcinoma in situ of left breast (principal); D24.2 Benign neoplasm of left breast; N60.22 Fibroadenosis of left breast; N64.89 Other specified disorders of breast; I10 Essential (primary) hypertension; E11.9 Type 2 diabetes mellitus without complications
CPT/HCPCS: 19281; 88307-TC; 94760

== ENCOUNTER → 2019-09-18 | Day surgery (SDC) | payer OTHER ==
--- NOTE | 2019-09-20 16:06 | PATH ---
Surgical Pathology Report Patient Name: PRANAV CH [facility]. Rec. #: [id number] /Age/Gender: 1960 (Age: 58) / F Account: [id number] Location: [facility] Taken: 09/18/2019 Received: 09/18/2019 Reported: 09/20/2019 Physicians: Janay Sanders M.D. Specimen(s) Received A: LEFT BREAST SPECIMEN WITH CALCIFICATIONS B: LEFT BREAST SPECIME WITHOUT CALCIFICATIONS Clinical History Nonpalpable lesion Mammographic findings: Microcalcification, suspicious History of DCIS at the same spot Final Diagnosis A. LEFT BREAST SPECIMEN WITH CALCIFICATIONS, STEREOTACTIC BIOPSY: BENIGN BREAST TISSUE WITH DILATED DUCTS, FOREIGN-BODY TYPE MULTINUCLEATED GIANT CELL REACTION, OLD HEMORRHAGE, AND MICROCALCIFICATIONS. B. LEFT BREAST SPECIMEN WITHOUT CALCIFICATIONS, STEREOTACTIC BIOPSY: BENIGN BREAST TISSUE WITH FOREIGN BODY TYPE MULTINUCLEATED GIANT CELL REACTION, OLD HEMORRHAGE, STROMAL FIBROSIS, AND MICROCALCIFICATIONS. Electronically Signed Pacheco Dougherty M.D. Gross Description A. Received in formalin labeled "left breast with calcifications," is a 1.6 x 1.5 x 0.3 cm aggregate of welsh-yellow, irregular to cylindrical portions of fibroadipose tissue. The formalin is filtered and the specimen is entirely submitted in one cassette. B. Received in formalin labeled "left breast without calcifications," is a 3.5 x 2.0 x 0.3 cm aggregate of multiple welsh-yellow, irregular to cylindrical portions of fibroadipose tissue. The formalin is filtered and the specimen is entirely submitted in 2 cassettes. Time to formalin fixation: 24 minutes Total formalin fixation time: Approximately 29 hours. 09/19/2019 [facility]09/19/2019
== END | disposition home or self-care (01) ==
LOC: FMAMMOTONE 10:18
PROVIDERS: ATTEND Surgery
PROC: 0H9T3ZX Drainage of Right Breast, Percutaneous Approach, Diagnostic (ICD-10-PCS; principal; 2019-09-18)
DX: D48.62 Neoplasm of uncertain behavior of left breast (principal)
CPT/HCPCS: 19081; 76098-TC-FY; 88305-TC